=== PATIENT | female | born 1975 | race Caucasian/White ===

== ENCOUNTER 2022-02-27 16:29 | Emergency (ER) | payer OTHER ==
[2022-02-27] MEDS ORDERED: MEDROL 4MG DOSEP4 MG PO (18:36)
== END 2022-02-27 19:01 | disposition home or self-care (01) ==
LOC: FER 16:29
DX: S50.812A Abrasion of left forearm, initial encounter (principal); S80.812A Abrasion, left lower leg, initial encounter; S80.811A Abrasion, right lower leg, initial encounter; V43.52XA Car driver injured in collision with other type car in traffic accident, initial encounter
CPT/HCPCS: 99283; J1885